=== PATIENT | male | born 1965 | race Two or more races ===

== ENCOUNTER 2019-09-09 03:02 | Emergency (ER) | payer OTHER ==
[~2019-09-09] VITALS: Ht 175.3 cm; Wt 90.7 kg
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
--- NOTE | 2019-09-09 03:20 | NUR ---
ED Nurse Note: PT BLOOD SENT TO LAB. NOTED PT ED=880 ERMD NOTIFIED. IV FLUIDS STARTED PER ERMD ORDER. [employer] AT THE BEDSIDE.
[2019-09-09 03:28] VITALS: BP 117/71
[2019-09-09 03:32] LABS: BASOPHILS % (AUTO) 0.8 % (0.0-2.0); EOSINOPHILS % (AUTO) 5.2 % (0.0-3.0); HEMATOCRIT 42.4 % (42.0-52.0); HEMOGLOBIN 14.5 G/DL (14.2-18.0); LYMPHOCYTES % (AUTO) 27.7 % (20.0-45.0); MEAN CORPUSCULAR VOLUME 89 FL (80-99); MONOCYTES % (AUTO) 5.9 % (1.0-10.0); NEUTROPHILS % (AUTO) 60.5 % (45.0-75.0); PLATELET COUNT 365 K/UL (150-450); RED BLOOD COUNT 4.78 M/UL (4.70-6.10); RED CELL DISTRIBUTION WIDTH 11.9 % (11.6-14.8); WHITE BLOOD COUNT 13.7 K/UL (4.8-10.8)
--- NOTE | 2019-09-09 03:33 | NUR ---
ED Nurse Note: NOTED PT O2 SAT DOWN TO 89%, PT PLACED ON O2 VIA NC 3L/MIN, ERMD AWARE. WILL CONT MONITOR
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
--- NOTE | 2019-09-09 03:33 | NUR ---
HAND-OFF: Report given to VIKTOR ROSENTHAL.
[2019-09-09 03:46] LABS: ANION GAP 12 mmol/L (5-15); BLOOD UREA NITROGEN 12 mg/dL (7-18); CARBON DIOXIDE 25 MMOL/L (21-32); CHLORIDE 96 MMOL/L (98-107); CREATININE 0.8 MG/DL (0.55-1.30); POTASSIUM 3.5 MMOL/L (3.5-5.1); SODIUM 133 MMOL/L (136-145)
[2019-09-09 03:47] LABS: INR 0.9 (0.9-1.1)
[2019-09-09 03:49] VITALS: BP 117/71
[2019-09-09 03:55] LABS: ALANINE AMINOTRANSFERASE 20 U/L (12-78); ALBUMIN 3.4 G/DL (3.4-5.0); ALBUMIN/GLOBULIN RATIO 0.7 (1.0-2.7); ALKALINE PHOSPHATASE 104 U/L (46-116); ASPARTATE AMINO TRANSFERASE 14 U/L (15-37); BILIRUBIN,TOTAL 0.2 MG/DL (0.2-1.0)
[2019-09-09 04:01] VITALS: BP 112/77
--- NOTE | 2019-09-09 05:17 | NUR ---
ED Nurse Note: Patient going over to radiology.
[2019-09-09] MEDS ORDERED: Thiamine HCl 100 MG in D5W 55 ML IVPB ONE (05:30)
--- NOTE | 2019-09-09 06:17 | Diagnostic Imaging Report ---
Indication: Altered mental status Technique: Continuous helical CT scanning of the head was performed utilizing automated exposure control without intravenous contrast material. Axial and coronal reconstructions were obtained. Comparison: None CT dose: Total DLP 1520.4 mGycm; CTDI vol 62.7 mGy Findings: There is no acute intracranial hemorrhage, mass effect or cortical edema. Is no shift of midline structures. Alba-white differentiation appears grossly preserved. The ventricles, cisterns and sulci are within normal limits for age. Visualized mastoid air cells are clear. Mild mucosal thickening noted in the paranasal sinuses. No acute skull fracture. IMPRESSION: No evidence of acute intracranial hemorrhage, mass effect or cortical edema. MRI may be obtained for more sensitive evaluation as clinically indicated. The CT scanner at [facility] is accredited by the [employer] and the scans are performed using protocols designed to limit radiation exposure to as low as reasonably achievable to attain images of sufficient resolution adequate for diagnostic evaluation.
--- NOTE | 2019-09-09 07:07 | NUR ---
HAND-OFF: Report given to Sid HOANG.
[2019-09-09 07:15] VITALS: BP 115/72
--- NOTE | 2019-09-09 07:15 | NUR ---
Patient asleep in bed. VSS. Patient becomes combative when attempting to wake him up. All loose items placed a safe distance away from the patient, bed in lowest position.
[2019-09-09 09:15] VITALS: BP 118/73
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
[2019-09-09] MEDS ORDERED: metFORMIN 500mg tab ORAL ONE (09:45)
[2019-09-09 10:10] VITALS: BP 134/76
--- NOTE | 2019-09-09 12:38 | Cardiology Report ---
APPROVED REPORT EKG Measurement Heart [id number] Poor data quality, interpretation may be adversely affected Normal sinus rhythm Normal ECG
== END 2019-09-09 10:10 | disposition home or self-care (01) ==
LOC: EDBD 03:02 → EMR 03:17
DX: K85.20 Alcohol induced acute pancreatitis without necrosis or infection (principal); F10.129 Alcohol abuse with intoxication, unspecified; R73.9 Hyperglycemia, unspecified; Y90.7 Blood alcohol level of 200-239 mg/100 ml; V43.52XA Car driver injured in collision with other type car in traffic accident, initial encounter; Y92.411 Interstate highway as the place of occurrence of the external cause
CPT/HCPCS: 36415; 70450; 80053; 80307; 82962; 83690; 83880; 84484; 85025; 85610; 85730; 93005; 96361; 96365; 96375; 99284; G0480; J7030; S0028